=== PATIENT | female | born 1975 | race Caucasian/White ===

== ENCOUNTER 2022-12-28 13:10 | Emergency (ER) | payer MEDICARE, MEDICAID ==
[2022-12-28] MEDS ORDERED: Ketorolac Tromethamine 30 MG/ML VIAL ONE (14:40)
== END 2022-12-28 15:14 | disposition home or self-care (01) ==
LOC: ERS 13:10
DX: S60.212A Contusion of left wrist, initial encounter (principal); F17.210 Nicotine dependence, cigarettes, uncomplicated; W18.30XA Fall on same level, unspecified, initial encounter
CPT/HCPCS: 96372; J1885